=== PATIENT | female | born 1960 | race African-American/Black ===

== ENCOUNTER 2018-06-04 18:31 | Emergency (ER) | payer OTHER ==
--- NOTE | 2018-06-04 18:38 | PDOC ---
Rapid Medical Evaluation Time Seen by Provider: 06/04/18 18:35 Medical Evaluation: 06/04/18 18:35 I have performed a brief in-person evaluation of this patient. The patient presents with a chief complaint of: right wrist pain x4 days. Patient noticed some swelling in her right wrist. Patient works as a [employer] and is constantly lifting. No numbness or tingling sensation. Patient is right handed. Pertinent physical exam findings: Right wrist decreased R.O.M>/pain. +Slight swelling Right hand: Cap refill <2sec Strength 5+/5 I have ordered the following: right wrist The patient will proceed to the ED for further evaluation. Discharge Disposition - Referrals Referrals: Valencia Torres MD [Primary Care Provider] - - Patient Instructions - Post Discharge Activity
[2018-06-04 18:39] VITALS: BP 131/77; PULSE 79; TEMP 97; BMI 30.9
--- NOTE | 2018-06-04 19:08 | PDOC ---
History of Present Illness - General Chief Complaint: Pain Stated Complaint: WRIST PAIN AND SWELLING Time Seen by Provider: 06/04/18 18:35 History Source: Patient Exam Limitations: Clinical Condition - History of Present Illness Initial Comments: 06/04/18 19:10 Patient with no significant past medical history present with complain of persistent right wrist pain over 4 days now which is worse with lifting. Patient works as a [employer] and reported heavy lifting at work. Denies any trauma or injury to wrists. Patient reported mild swelling to right wrist and hand . Denies any other symptoms Timing/Duration: getting worse (4 days) Past History - Past Medical History Allergies/Adverse Reactions: Allergies Allergy/AdvReac Type Severity Reaction Status Date / Time No Known Allergies Allergy Verified 06/04/18 18:38 Home Medications: Ambulatory Orders Arm Brace [Wrist Brace] 1 each MC DAILY #1 each 06/04/18 Naproxen 500 mg PO BID PRN #30 tablet 06/04/18 COPD: No - Suicide/Smoking/Psychosocial Hx Smoking History: Never smoked Review of Systems - Review of Systems Able to Perform ROS?: Yes Is the patient limited Turkish proficient: No Constitutional: No: Weakness Respiratory: No: Symptoms reported Cardiac (ROS): No: Symptoms Reported ABD/GI: No: Symptoms Reported Musculoskeletal: Yes: See HPI, Joint Pain (right wrist), Joint Swelling (right wrist), Muscle Pain (right wrist). No: Muscle Weakness All Other Systems: Reviewed and Negative *Physical Exam - Vital Signs Last Vital Signs Temp Pulse Resp BP Pulse Ox 97 F L 79 18 131/77 98 06/04/18 18:35 06/04/18 18:35 06/04/18 18:35 06/04/18 18:35 06/04/18 18:35 - Physical Exam Comments: 06/04/18 19:13 GENERAL: Well developed, well nourished. Awake and alert. No acute distress. CARDIOVASCULAR: Regular rate and rhythm. No murmurs, rubs, or gallops. PULMONARY: No evidence of respiratory distress. Lungs clear to auscultation bilaterally. No wheezing, rales or rhonchi. ABDOMINAL: Soft. Non-tender. Non-distended. No rebound or guarding. No organomegaly. Normoactive bowel sounds MUSCULOSKELETAL : Mild tenderness to palpation over carpal tunnel which is worse with flexion and extension of right wrist. Mild swelling over radial aspect of right wrist. No bony deformities EXTREMITIES: No cyanosis. No clubbing. No edema. No calf tenderness. SKIN: Warm and dry. Normal capillary refill. No rashes. No jaundice. NEUROLOGICAL: Alert, awake, appropriate. No motor deficits in the lower extremities. Gait is normal without ataxia. PSYCHIATRIC: Cooperative. Good eye contact. Appropriate mood and affect. General Appearance: Yes: Nourished, Appropriately Dressed. No: Apparent Distress Medical Decision Making - Medical Decision Making 06/04/18 19:03 Patient with no significant past medical history present with complain of persistent right wrist pain without trauma or injury which has been going on for 4 days now. Exam significant for mild tenderness over carpal tunnel and radial aspect of right wrist which is worse with flexion and extension of right wrist. X-ray of right wrist shows no acute pathology. Patient stable for home discharge on NSAIDs and wrist brace with orthopedics follow-up. Patient advised to rest wrist *DC/Admit/Observation/Transfer Diagnosis at time of Disposition: Sprain of right wrist Qualifiers: Encounter type: initial encounter Qualified Code(s): S63.501A - Unspecified sprain of right wrist, initial encounter - Discharge Dispostion Disposition: HOME Condition at time of disposition: Stable Decision to Admit order: No - Prescriptions Prescriptions: Arm Brace [Wrist Brace] 1 each MC DAILY #1 each Naproxen 500 mg PO BID PRN #30 tablet PRN Reason: wrist pain - Referrals Referrals: Valencia Torres MD [Primary Care Provider] - Satinder Moore MD [Staff Physician] - - Patient Instructions Printed Discharge Instructions: DI for Wrist Sprain Additional Instructions: Take medication as prescribed as needed for pain. Rest right wrist and where prescribed brace daily until symptoms resolve. Follow up with preferred orthopedics if symptoms persist for more than 5 days - Post Discharge Activity Forms/Work/School Notes: Back to Work
== END 2018-06-04 19:17 | disposition home or self-care (01) ==
LOC: JER 18:31 → JERFT 18:31
DX: S63.501A Unspecified sprain of right wrist, initial encounter (principal); X50.9XXA Other and unspecified overexertion or strenuous movements or postures, initial encounter; X50.3XXA Overexertion from repetitive movements, initial encounter; Y93.F2 Activity, caregiving, lifting; Y92.198 Other place in other specified residential institution as the place of occurrence of the external cause; Y99.0 Civilian activity done for income or pay
CPT/HCPCS: 73110-TC-RT-FY; 99281-25